=== PATIENT | male | born 1980 | race Two or more races ===

== ENCOUNTER 2021-05-25 05:12 | Emergency (ER) | payer OTHER ==
[~2021-05-25] VITALS: Ht 175.3 cm; Wt 83.9 kg
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
[2021-05-25 06:18] LABS: BILIRUBIN,URINE SMALL (NEGATIVE); COLOR,URINE DARK YELLOW (YELLOW); LEUKOCYTE ESTERASE ,URINE Negative (NEGATIVE); NITRITE, URINE Negative (NEGATIVE); PROTEIN,URINE 30 mg/dl (NEGATIVE); UGLUCOSE Negative (NEGATIVE)
[2021-05-25 06:37] LABS: CALCIUM, SERUM 8.6 mg/dL (8.5-10.1); CARBON DIOXIDE 22 mmol/L (21-32); CHLORIDE 105 mmol/L (98-107); CREATININE 1.1 mg/dL (0.6-1.3); GLUCOSE 104 mg/dL (74-106); POTASSIUM 3.9 mmol/L (3.5-5.1); SODIUM SERUM 138 mmol/L (136-145); UREA NITROGEN, BLOOD 13 mg/dL (7-18)
[2021-05-25 06:42] LABS: ALANINE AMINOTRANSFERASE 25 U/L (12-78); ALCOHOL, BLOOD < 3 mg/dL (0-0); ALKALINE PHOSPHATASE 79 U/L (46-116); ASPARTATE AMINOTRANSFERASE 27 U/L (15-37); BILIRUBIN,DIRECT 0.3 mg/dL (0.0-0.2); BILIRUBIN,TOTAL 1.2 mg/dL (0.2-1.0); TOTAL PROTEIN, SERUM 7.2 g/dL (6.4-8.2)
[2021-05-25 06:43] LABS: ACETAMINOPHEN < 10 ug/ml (10-30)
[2021-05-25 06:44] LABS: BASOPHILS % (AUTO) 0.4 % (0.0-2.0); EOSINOPHILS % (AUTO) 1.3 % (0.0-6.0); HEMATOCRIT 43 % (39-51); LYMPHOCYTES # (AUTO) 1.8 K/uL (0.8-4.8); LYMPHOCYTES % (AUTO) 23.1 % (20.0-44.0); MEAN CORPUSCULAR HGB CONC 35 g/dl (31.0-36.0); MEAN CORPUSCULAR VOLUME 91 fL (80-96); MONOCYTES # (AUTO) 0.7 K/uL (0.1-1.30); MONOCYTES % (AUTO) 8.9 % (2.0-12.0); NEUTROPHILS # (AUTO) 5.2 K/uL (1.8-8.9); NEUTROPHILS % (AUTO) 66.3 % (43.0-81.0); PLATELET COUNT (AUTO) 271 K/uL (150-450); RED BLOOD CELL COUNT(AUTO) 4.75 MIL/uL (4.5-6.0); WHITE BLOOD COUNT (AUTO) 7.9 K/uL (4.3-11.0)
--- NOTE | 2021-05-25 07:46 | NUR ---
CALLED KANDI LEFT MSG.
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
--- NOTE | 2021-05-25 13:50 | NUR ---
KANDI faxed hold and clinicals to: [facility] fax:[phone] tel:[phone] ATTN: natividad Reis and Alessandra Lafleur FAX: [phone] tel: [phone] Reference # [id number]
--- NOTE | 2021-05-26 00:48 | NUR ---
CALLED [facility] AND SPOKE TO AAYUSH. PER HIM, NO BED AVAILABLE AT THIS TIME AND TO TRY LATER
--- NOTE | 2021-05-26 00:50 | NUR ---
CALLED [facility] AND SPOKE TO GLADYS. THEY HAVE NOT REC'D THE INQUIRIES. WILL FAX EVERY THING AGAIN
--- NOTE | 2021-05-26 01:00 | NUR ---
PT IS AWAKE, ALERT AND RESPONSIVE. REPORTED FEELING WELL. NO AGRESSIVE BEHAVIOR NOTED AT THIS TIME. DENIED SI/ HI. REORTED WILLING TO LEAVE THE HOSPITAL AND NOT INTERESTED TO BE TRANSFERRED TO A PSYCH FACILITY ANYMORE. MADE AWARE.
--- NOTE | 2021-05-26 01:05 | NUR ---
[employer] PAGED FOR EVAL. LEFT VOICEMAIL.
--- NOTE | 2021-05-26 02:15 | NUR ---
REPAGED [facility]
--- NOTE | 2021-05-26 03:30 | NUR ---
REC'D A CLL BACK FROM [facility]. PER HER, SHE'S NOT ABLE TO BREAK THE HOLD. PT RESTING COMOFRTABLY IN BED W/ STABLE VS. WILL CONT TO MONITOR ,
--- NOTE | 2021-05-26 09:21 | NUR ---
[facility] Referrals: KANDI faxed clinicals to [facility] FAX:[phone] TEL: [phone] AND [facility] FAX: [phone] TEL: [phone] KANDI will continue to follow up.
--- NOTE | 2021-05-26 09:55 | NUR ---
KANDI called [facility] TEL: [phone] regarding pending admission. Per Jennifer, they have pending discharges and asked SW to refax clinicals. KANDI refaxed clinicals to fax: [phone].
[2021-05-26] MEDS ORDERED: OLANZAPINE 5 MG TABLET PO ONE (10:00)
[2021-05-26] MEDS ORDERED: OLANZAPINE 5 MG TABLET ONE (10:19)
--- NOTE | 2021-05-26 11:03 | NUR ---
Patient Tranfers to outside Facility: received a call from [facility] for transfer info Physician:Dr. Lynn Location:[address] [address]
--- NOTE | 2021-05-26 11:09 | NUR ---
CALLED [facility] SPOKE WITH [facility] 45 MINS.
[2021-05-26 11:34] VITALS: BP 145/89
--- NOTE | 2021-05-26 12:22 | NUR ---
patient picked up by private ambulance in no distress going to [facility].
== END 2021-05-26 12:21 ==
LOC: ER 05:15
DX: F29 Unspecified psychosis not due to a substance or known physiological condition (principal); F20.9 Schizophrenia, unspecified; F31.9 Bipolar disorder, unspecified; Z20.822 Contact with and (suspected) exposure to COVID-19
CPT/HCPCS: 36415; 80048; 80076; 80143; 80307; 80320; 81003; 85025; 87426; 99285; C9803; G0480